=== PATIENT | female | born 1975 | race Caucasian/White ===

== ENCOUNTER 2017-04-19 11:53 | Emergency (ER) | payer OTHER ==
[~2017-04-19] VITALS: Ht 162.6 cm; Wt 62.6 kg
[~2017-04-19 11:53] MED LIST: ACET-73 PO; IBUP-23 PO
--- NOTE | 2017-04-19 12:18 | NUR ---
PT IS IN ROOM #2A. DR DINERO EVALUATED THE PT.
[2017-04-19] MEDS ORDERED: ACETAMINOPHEN 325 MG TABLET PO ONE (12:30)
[2017-04-19] MEDS ORDERED: IBUPROFEN 600 MG TABLET ONE ×2 (12:30→12:34)
[2017-04-19] MEDS ORDERED: ACETAMINOPHEN ES 500 MG TABLET ONE ×2 (12:30→12:33)
[2017-04-19] MEDS ORDERED: IBUPROFEN 200 MG TABLET PO ONE (12:30)
[2017-04-19 12:39] VITALS: BP 128/71
--- NOTE | 2017-04-19 12:39 | NUR ---
PT WAS D/C TO HOME. D/C INSTRUCTIONS GIVEN TO THE PT.
== END 2017-04-19 12:40 | disposition home or self-care (01) ==
LOC: ER 11:53
DX: J06.9 Acute upper respiratory infection, unspecified (principal); F17.200 Nicotine dependence, unspecified, uncomplicated
CPT/HCPCS: A4663

== ENCOUNTER 2017-04-21 03:49 | Emergency (ER) | payer OTHER ==
[~2017-04-21] VITALS: Ht 162.6 cm; Wt 62.6 kg
[2017-04-21] MEDS ORDERED: ALBUTEROL SULFATE 2.5 MG/3 ML NEBU NEB ONE ×2 (04:15→04:45)
[2017-04-21] MEDS ORDERED: IPRATROPIUM BROMIDE 0.5 MG/2.5 ML NEBU NEB ONE (04:15)
[2017-04-21] MEDS ORDERED: BENZONATATE 100 MG CAPSULE PO ONE (04:15)
[2017-04-21] MEDS ORDERED: BENZONATATE 100 MG CAPSULE ONE (04:24)
[2017-04-21] MEDS ORDERED: ALBUTEROL SULFATE 2.5 MG/3 ML NEBU ONE ×2 (04:27→04:58)
[2017-04-21] MEDS ORDERED: IPRATROPIUM BROMIDE 0.5 MG/2.5 ML NEBU ONE (04:27)
--- NOTE | 2017-04-21 05:40 | NUR ---
Patient discharged to home in stable conditon. Written and verbal after care instructions given. Patient verbalizes understanding of instructions.
== END 2017-04-21 05:42 | disposition home or self-care (01) ==
LOC: ER 03:51
DX: J20.9 Acute bronchitis, unspecified (principal); F17.200 Nicotine dependence, unspecified, uncomplicated
CPT/HCPCS: 71010; A4663; J3590

== ENCOUNTER 2017-04-28 19:44 | Emergency (ER) | payer OTHER ==
[~2017-04-28] VITALS: Ht 162.6 cm; Wt 62.6 kg
--- NOTE | 2017-04-28 19:55 | NUR ---
Patient c/o LUQ abdominal pain radiating to left flank x2 days. Here for worsening symptoms, pt is alert, oriented x 4, no resp distress noted or reported upon assessment...
[2017-04-28 21:27] LABS: *BILIRUBIN,URIN NEGATIVE (NEGATIVE); *BLOOD, URINE Trace-lysed (NEGATIVE); *CLARITY,URINE SLIGHTLY CLOUDY (CLEAR); *COLOR,URINE YELLOW (YELLOW); *KETONES,URINE NEGATIVE (NEGATIVE); *PROTEIN,URINE NEGATIVE (NEGATIVE); *UROBILINOGEN,URINE 0.2 E.U./dl (NORMAL); LEUKOCYTE ESTERASE ,URINE NEGATIVE (NEGATIVE); NITRITE, URINE NEGATIVE (NEGATIVE); PH,URINE 5.5 (5.0-8.0); UGLUCOSE NEGATIVE (NEGATIVE)
[2017-04-28] MEDS ORDERED: KETOROLAC TROMETHAMINE 15 MG INJ IV ONE (21:30)
[2017-04-28] MEDS ORDERED: IV NORMAL SALINE 1000 ML BAG IV ONE ×2 (21:30→23:30)
[2017-04-28] MEDS ORDERED: METOCLOPRAMIDE HCL 10 MG/2 ML VIAL IV ONE (21:30)
[2017-04-28 21:37] LABS: BASOPHILS # (AUTO) 0.1 K/uL (0.0-8.0); BASOPHILS % (AUTO) 1.2 % (0.0-2.0); EOSINOPHILS # (AUTO) 0.3 K/uL (0.0-0.7); EOSINOPHILS % (AUTO) 2.9 % (0.0-7.0); HEMATOCRIT 37.8 % (37-47); HEMOGLOBIN 12.1 G/DL (12.0-16.0); LYMPHOCYTES # (AUTO) 3.3 K/UL (0.8-4.8); LYMPHOCYTES % (AUTO) 28.4 % (20.5-51.5); MEAN CORPUSCULAR HEMOGLOBIN 26.1 UUG (27.0-31.0); MEAN CORPUSCULAR HGB CONC 32 g/dL (32.0-37.0); MONOCYTES # (AUTO) 0.7 K/UL (0.1-1.30); MONOCYTES % (AUTO) 6.1 % (0.0-11.0); NEUTROPHILS % (AUTO) 61.4 % (38.5-71.5); PLATELET COUNT (AUTO) 375 K/UL (150-450); RED BLOOD CELL COUNT(AUTO) 4.61 MIL/UL (4.2-5.4); WHITE BLOOD COUNT (AUTO) 11.4 K/UL (4.0-11.2)
[2017-04-28 21:38] LABS: BACTERIA,URINE FEW /HPF (NONE SEEN); RBC,URINE 0-3 /HPF (0-3); SQUAMOUS EPITHELIAL CELL,UR FEW /HPF (NONE SEEN)
[2017-04-28 21:44] LABS: CARBON DIOXIDE 27 mmol/L (21-32); CHLORIDE 105 mmol/L (98-107); CREATININE 0.7 mg/dL (0.6-1.3); GLUCOSE 95 mg/dL (74-106); POTASSIUM 4.7 mmol/L (3.5-5.1); UREA NITROGEN, BLOOD 16 mg/dL (7-18)
[2017-04-28] MEDS ORDERED: METOCLOPRAMIDE HCL 10 MG/2 ML VIAL ONE (21:46)
[2017-04-28] MEDS ORDERED: KETOROLAC TROMETHAMINE 15 MG INJ ONE (21:46)
[2017-04-28 21:50] LABS: ALANINE AMINOTRANSFERASE 37 U/L (14-59); ALKALINE PHOSPHATASE 69 U/L (50-136); ASPARTATE AMINOTRANSFERASE 28 U/L (15-37); BILIRUBIN,DIRECT < 0.1 mg/dL (0.0-0.2); BILIRUBIN,TOTAL 0.4 mg/dL (0.2-1.0); LIPASE 187 U/L (73-393); TOTAL PROTEIN, SERUM 7.9 g/dL (6.4-8.2)
[2017-04-28] MEDS ORDERED: NORMAL SALINE FLUSH 10 ML DISP.SYRIN ONE (22:11)
[2017-04-28] MEDS ORDERED: IV NORMAL SALINE 250 ML IV ONE ×2 (22:11→23:54)
[2017-04-28] MEDS ORDERED: IOHEXOL 300MG/ML 100 ML INFUS..BTL ONE (22:11)
--- NOTE | 2017-04-28 22:28 | NUR ---
pt returned from ct scan via [place] pt alert, oriented x 4, no resp distress noted or reported upon assessment...
[2017-04-28] MEDS ORDERED: IOHEXOL 350 100 ML INFUS..BTL ONE (23:54)
--- NOTE | 2017-04-29 01:48 | NUR ---
Patient discharged to home in stable conditon. Written and verbal after care instructions given. Patient verbalizes understanding of instructions. Pt walked out of ER unassisted with belongings at side...
[2017-04-29 01:52] VITALS: BP 121/81
== END 2017-04-29 01:52 | disposition home or self-care (01) ==
LOC: ER 19:45
DX: R07.9 Chest pain, unspecified (principal); J20.9 Acute bronchitis, unspecified; F17.200 Nicotine dependence, unspecified, uncomplicated; J45.909 Unspecified asthma, uncomplicated
CPT/HCPCS: 36415; 71010; 71275; 74177; 80048; 80076; 81001; 83690; 84484; 84703; 85025; 93005; 96361 ×2; 96374; 96375; 99285; A4663; J1885; J2765; J3490; J7030 ×2; J7050 ×2; Q9967 ×2; 70030-TC

== ENCOUNTER 2017-05-02 00:31 | Emergency (ER) | payer OTHER ==
[~2017-05-02] VITALS: Ht 162.6 cm; Wt 62.6 kg
--- NOTE | 2017-05-02 01:15 | NUR ---
Pt c/o LUQ ABD and left flank pain, 10/10, and tenderness along w/ HEATH and nausea. [id number]. Pt denies CP, SOB, dizziness, no other complaints, no distress noted.
[2017-05-02] MEDS ORDERED: ONDANSETRON ODT 4 MG TAB.RAPDIS SL ONE (01:45)
[2017-05-02] MEDS ORDERED: ALPRAZOLAM 0.25 MG TABLET PO ONE (01:45)
[2017-05-02] MEDS ORDERED: OXYCODONE/APAP 5-325 MG TABLET PO ONE (01:45)
[2017-05-02] MEDS ORDERED: ONDANSETRON ODT 4 MG TAB.RAPDIS ONE (02:02)
[2017-05-02] MEDS ORDERED: OXYCODONE/APAP 5-325 MG TABLET ONE (02:03)
[2017-05-02] MEDS ORDERED: ALPRAZOLAM 0.25 MG TABLET ONE (02:03)
--- NOTE | 2017-05-02 04:06 | NUR ---
Gave pt RX, test results, CD of CTs, and d/c instructions, verbalized understanding.
[2017-05-02 04:16] VITALS: BP 132/87
== END 2017-05-02 04:17 | disposition home or self-care (01) ==
LOC: ER 00:35
DX: R10.12 Left upper quadrant pain (principal); D25.9 Leiomyoma of uterus, unspecified; R16.0 Hepatomegaly, not elsewhere classified; R91.8 Other nonspecific abnormal finding of lung field; F17.200 Nicotine dependence, unspecified, uncomplicated; J45.909 Unspecified asthma, uncomplicated
CPT/HCPCS: 76700; 99284; A4663; Q0162

== ENCOUNTER 2019-02-08 22:33 | Emergency (ER) | payer MEDICAID, OTHER ==
[~2019-02-08] VITALS: Ht 162.6 cm; Wt 61.2 kg
[2019-02-08] MEDS ORDERED: EMOL20CR TP (22:57)
--- NOTE | 2019-02-08 23:10 | NUR ---
PATIENT WALKED INTO ER C/O BILATERAL EYE PAIN. PATIENT STATES HAS PROCEDURE CALLED FIBROBLAST. HAS REDENED SKIN AROUND ORBITAL AREA PATIENT STATING "IT IS FROM THE PROCEDURE." HERE FOR WORSENING EYE PAIN
[2019-02-08] MEDS ORDERED: FLUORESCEIN SODIUM 1 MG STRIP ONE (23:37)
[2019-02-08] MEDS ORDERED: TETRACAINE HCL 0.5% OPHT DROP 2 ML BOTTLE ONE (23:37)
[2019-02-08] MEDS ORDERED: HYDROCODONE/APAP 10-325 MG TABLET ONE (23:41)
[2019-02-08] MEDS ORDERED: FLUORESCEIN SODIUM 1 MG STRIP OP ONE (23:45)
[2019-02-08] MEDS ORDERED: HYDROCODONE/APAP 10-325 MG TABLET PO ONE (23:45)
[2019-02-08] MEDS ORDERED: TETRACAINE HCL 0.5% OPHT DROP 2 ML BOTTLE OP ONE (23:45)
--- NOTE | 2019-02-09 00:03 | NUR ---
Patient discharged to home in stable conditon WITH FAMILY TAKING PATIENT HOME. Written and verbal after care instructions given. Patient verbalizes understanding of instructions. WALKED OUT OF ER WITH NO DISTRESS NOTED
[2019-02-09 00:07] VITALS: BP 129/84
== END 2019-02-09 00:07 | disposition home or self-care (01) ==
LOC: ER 22:40
DX: S05.01XA Injury of conjunctiva and corneal abrasion without foreign body, right eye, initial encounter (principal); S05.02XA Injury of conjunctiva and corneal abrasion without foreign body, left eye, initial encounter; J45.909 Unspecified asthma, uncomplicated; F17.200 Nicotine dependence, unspecified, uncomplicated; Z79.1 Long term (current) use of non-steroidal anti-inflammatories (NSAID); Z79.899 Other long term (current) drug therapy; X58.XXXA Exposure to other specified factors, initial encounter; Y93.89 Activity, other specified; Y92.89 Other specified places as the place of occurrence of the external cause; Y99.8 Other external cause status
CPT/HCPCS: A4663

== ENCOUNTER 2021-11-20 23:05 | Emergency (ER) | payer MEDICAID, OTHER ==
[~2021-11-20] VITALS: Ht 162.6 cm; Wt 60.8 kg
[~2021-11-20 23:05] MED LIST changes: -ACET-73 PO; +EMOL20CR TP
--- NOTE | 2021-11-20 23:30 | NUR ---
patient on room 5 c[address] Heredia made aware
--- NOTE | 2021-11-20 23:36 | NUR ---
Dr. Heredia at bedside for MSE.
[2021-11-21] MEDS ORDERED: ALBUTEROL SULFATE 2.5 MG/3 ML NEBU NEB ONE (00:30)
[2021-11-21] MEDS ORDERED: IPRATROPIUM BROMIDE 0.5 MG/2.5 ML NEBU NEB ONE (00:30)
[2021-11-21 00:36] LABS: HEMATOCRIT 26.7 % (31.2-41.9); MEAN CORPUSCULAR HEMOGLOBIN 21.6 uug (24.7-32.8); MEAN CORPUSCULAR VOLUME 69.6 fL (75.5-95.3); PLATELET COUNT (AUTO) 305 K/uL (179-408)
[2021-11-21 00:52] LABS: CARBON DIOXIDE 24 mmol/L (21-32); CHLORIDE 106 mmol/L (98-107); CREATININE 0.9 mg/dL (0.6-1.3); GLUCOSE 119 mg/dL (74-106); UREA NITROGEN, BLOOD 11 mg/dL (7-18)
[2021-11-21] MEDS ORDERED: ALBUTEROL SULFATE 2.5 MG/3 ML NEBU ONE (01:09)
[2021-11-21] MEDS ORDERED: IPRATROPIUM BROMIDE 0.5 MG/2.5 ML NEBU ONE (01:10)
[2021-11-21] MEDS ORDERED: OXYC-128 PO (01:35)
[2021-11-21] MEDS ORDERED: ALBU6.7H9 INH (01:35)
[2021-11-21] MEDS ORDERED: FERR325T28 PO (02:17)
--- NOTE | 2021-11-21 02:27 | NUR ---
Patient discharged to home in stable condition. Written and verbal after care instructions given. Patient verbalizes understanding of instructions. Stressed follow up or return to ER for worsening s/s.
[2021-11-21 02:28] VITALS: BP 128/65
[2021-11-21 02:35] LABS: EOSINOPHILS % (MANUAL) 1 % (0-8); LYMPHOCYTES % (MANUAL) 18 % (20-40); MONOCYTES % (MANUAL) 7 % (2-10); NEUTROPHILS % (MANUAL) 74 % (42-75)
== END 2021-11-21 02:28 | disposition home or self-care (01) ==
LOC: ER 23:13
DX: J40 Bronchitis, not specified as acute or chronic (principal); D64.9 Anemia, unspecified; J45.909 Unspecified asthma, uncomplicated
CPT/HCPCS: 36415; 70030-TC; 71045; 84484; 85025; 87400; 93005; J3590

== ENCOUNTER 2022-07-09 15:25 | Emergency (ER) | payer MEDICAID, OTHER ==
[~2022-07-09] VITALS: Ht 162.6 cm; Wt 68.0 kg
[~2022-07-09 15:25] MED LIST changes: +ALBU6.7H9 INH; +FERR325T28 PO; +OXYC-128 PO
--- NOTE | 2022-07-09 16:19 | NUR ---
PT IS IN ROOM #5A. DR DARBY EVALUATED THE PT.
[2022-07-09 16:36] LABS: *BILIRUBIN,URIN NEGATIVE (NEGATIVE); *BLOOD, URINE NEGATIVE (NEGATIVE); *CLARITY,URINE CLEAR (CLEAR); *COLOR,URINE YELLOW (YELLOW); *KETONES,URINE NEGATIVE (NEGATIVE); *UROBILINOGEN,URINE 0.2 E.U./dl (NORMAL); LEUKOCYTE ESTERASE ,URINE NEGATIVE (NEGATIVE); NITRITE, URINE NEGATIVE (NEGATIVE); PH,URINE 5.5 (5.0-8.0); UGLUCOSE NEGATIVE (NEGATIVE)
[2022-07-09 16:40] LABS: CARBON DIOXIDE 26 mmol/L (21-32); CHLORIDE 105 mmol/L (98-107); CREATININE 0.5 mg/dL (0.6-1.3); GLUCOSE 103 mg/dL (74-106); POTASSIUM 4.4 mmol/L (3.5-5.1); UREA NITROGEN, BLOOD 11 mg/dL (7-18)
[2022-07-09 16:42] LABS: *URINE HCG, QUAL NEG (NEGATIVE)
[2022-07-09 16:46] LABS: ALANINE AMINOTRANSFERASE 29 U/L (14-59); ALKALINE PHOSPHATASE 63 U/L (50-136); ASPARTATE AMINOTRANSFERASE 13 U/L (15-37); BILIRUBIN,DIRECT 0.1 mg/dL (0.0-0.2); BILIRUBIN,TOTAL 0.6 mg/dL (0.2-1.0); LIPASE 125 U/L (73-393); TOTAL PROTEIN, SERUM 7.7 g/dL (6.4-8.2)
[2022-07-09 16:53] LABS: HEMATOCRIT 25.4 % (31.2-41.9); MEAN CORPUSCULAR HEMOGLOBIN 18.3 uug (24.7-32.8); MEAN CORPUSCULAR VOLUME 63.5 fL (75.5-95.3); PLATELET COUNT (AUTO) 267 K/uL (179-408)
[2022-07-09] MEDS ORDERED: PANTOPRAZOLE SODIUM IV 40 MG in IV DEXTROSE 5% 100 ML IV ONE (17:30)
[2022-07-10 05:50] LABS: BAND % (MANUAL) 4 % (0-10); BASOPHILS % (MANUAL) 0 % (0-2); EOSINOPHILS % (MANUAL) 1 % (0-8); LYMPHOCYTES % (MANUAL) 15 % (20-40); MONOCYTES % (MANUAL) 7 % (2-10); NEUTROPHILS % (MANUAL) 73 % (42-75)
== END 2022-07-09 19:14 | disposition left against medical advice (07) ==
LOC: ER 15:25
DX: R10.9 Unspecified abdominal pain (principal); D64.9 Anemia, unspecified; K62.89 Other specified diseases of anus and rectum; Z53.29 Procedure and treatment not carried out because of patient's decision for other reasons; Z82.49 Family history of ischemic heart disease and other diseases of the circulatory system; J45.909 Unspecified asthma, uncomplicated; N92.0 Excessive and frequent menstruation with regular cycle
CPT/HCPCS: 99285; 74176; 71045; 80076; 80048; 81003; 84703; 83690; 85025; 36415; 93005; 85007; C9113; 70030-TC; A4663